=== PATIENT | female | born 1970 | race Caucasian/White ===

== ENCOUNTER 2021-02-28 07:18 | Inpatient (IN) | payer OTHER ==
[~2021-02-28] VITALS: Ht 154.9 cm; Wt 62.6 kg
[~2021-02-28 07:18] MED LIST: AMLODIPINE BESYL5 MG PO; BASAGLAR K100 UNIT/1 SC; BASAGLAR K100 UNIT/1 SQ; BREO ELLIPTA 21 EACH INH; ESOMEPRAZOLE MA20 MG PO; FUROSEMIDE20 MG PO; HUMALOG 10100 UNITS/ SC; LIPITOR TAB 2020 MG PO; LISINOPRIL5 MG PO; METOPROLOL TART50 MG PO; VENLAFAXINE HCL75 MG PO
[2021-02-28 11:02] LABS: HEMOGLOBIN 7.9 gm/dl (12.3-15.3); RED BLOOD COUNT 2.6 M/UL (4.00-5.10); WHITE BLOOD COUNT 11.6 K/UL (4.5-11.0)
[2021-02-28] MEDS ORDERED: CLOPIDOGREL75 MG PO (12:57)
[2021-02-28] MEDS ORDERED: ASPIRIN EC81 MG PO (12:59)
[2021-02-28] MEDS ORDERED: LEVEMIR100 UNIT/1 SC (13:03)
[2021-02-28] MEDS ORDERED: METOPROLOL SUCC25 MG PO (13:03)
[2021-02-28] MEDS ORDERED: NICOTINE PATCH1 EAC2 TD (13:05)
[2021-02-28] MEDS ORDERED: PANTOPRAZOLE SO20 MG PO (13:08)
[2021-02-28] MEDS ORDERED: NOVOLOG 10100 UNITS/ SC (13:09)
[2021-02-28] MEDS ORDERED: CARAFATE1 GM PO (20:01)
[2021-03-01 02:55] LABS: WHITE BLOOD COUNT 12.8 K/UL (4.5-11.0)
[2021-03-01 02:57] LABS: RED BLOOD COUNT 2.11 M/UL (4.00-5.10)
[2021-03-02 11:25] LABS: WHITE BLOOD COUNT 12.7 K/UL (4.5-11.0)
[2021-03-02 11:31] LABS: RED BLOOD COUNT 2.79 M/UL (4.00-5.10)
[2021-03-03 04:30] LABS: HEMOGLOBIN 8.6 gm/dl (12.3-15.3); RED BLOOD COUNT 2.89 M/UL (4.00-5.10); WHITE BLOOD COUNT 10.5 K/UL (4.5-11.0)
[2021-03-04 04:28] LABS: HEMOGLOBIN 8.1 gm/dl (12.3-15.3); RED BLOOD COUNT 2.74 M/UL (4.00-5.10)
[2021-03-04] MEDS ORDERED: LANTUS100 UNIT/1 SQ (15:00)
[2021-03-04] MEDS ORDERED: PROTONIX 40 MG40 M1 PO (15:00)
[2021-03-04] MEDS ORDERED: LEVOFLOXACIN750 MG PO (15:00)
[2021-03-04] MEDS ORDERED: FERROUS GLUCON324 M1 PO (15:00)
[2021-03-04] MEDS ORDERED: HUMALOG100 UNIT/1 SQ (15:00)
[2021-03-04] MEDS ORDERED: IPRAT-ALBUT 0.5-3 ML NEB ×2 (15:00→15:15)
[2021-03-04] MEDS ORDERED: SPIRIVA HANDIH18 MCG INH (15:00)
[2021-03-04] MEDS ORDERED: SYMBICORT 16010.2 GM INH (15:00)
[2021-03-04] MEDS ORDERED: MUPIROCIN22 GM TOP (15:00)
[2021-03-04] MEDS ORDERED: HYDRALAZINE HCL25 MG PO ×2 (15:03→15:15)
[2021-03-04] MEDS ORDERED: LASIX20 MG PO (15:23)
[2021-03-04] MEDS ORDERED: LIPITOR TAB 2020 MG PO (15:29)
== END 2021-03-04 16:15 | disposition home health service (06) | DRG 871 ==
LOC: PROG CARE 08:25
PROVIDERS: Internal Medicine; Physician Assistant; ADMIT Internal Medicine
DX: A41.9 Sepsis, unspecified organism (principal); J69.0 Pneumonitis due to inhalation of food and vomit; J96.01 Acute respiratory failure with hypoxia; G92 Toxic encephalopathy; R65.20 Severe sepsis without septic shock; D50.9 Iron deficiency anemia, unspecified; Z20.822 Contact with and (suspected) exposure to COVID-19; E10.9 Type 1 diabetes mellitus without complications; J44.9 Chronic obstructive pulmonary disease, unspecified; K21.9 Gastro-esophageal reflux disease without esophagitis; M79.89 Other specified soft tissue disorders; D53.9 Nutritional anemia, unspecified; E78.5 Hyperlipidemia, unspecified; R60.1 Generalized edema; I25.2 Old myocardial infarction; Z91.14 Patient's other noncompliance with medication regimen; Z72.0 Tobacco use; Z90.49 Acquired absence of other specified parts of digestive tract; Z80.9 Family history of malignant neoplasm, unspecified; Z87.11 Personal history of peptic ulcer disease; Z79.4 Long term (current) use of insulin; Z86.73 Personal history of transient ischemic attack (TIA), and cerebral infarction without residual deficits; Z83.3 Family history of diabetes mellitus
CPT/HCPCS: ECHO; 36415; 36430; 36600; 70551; 71046; 80048; 80053; 80202; 81001; 82272; 82607; 82728; 82746; 82803; 82962; 83540; 83550; 83735; 84100; 85025; 85027; 86850; 86870; 86900; 86901; 86920; 86922; 87040; 87070; 87081; 92610; 93005; 93306; 93971; 94640; 94664; 94760; 97161; 97166; J1756; J2543; J3370; J7070; P9016